=== PATIENT | female | born 1970 | race Caucasian/White ===

== ENCOUNTER 2018-10-30 08:44 | Outpatient (REF) | payer BC, SELFPAY ==
[2018-10-30 14:07] LABS: FREE T4 0.97 ng/dL (0.76-1.46)
== END 2018-10-30 09:04 ==
LOC: NCHCN 08:44
PROVIDERS: PCP Nurse Practitioner; Visit Provider Nurse Practitioner
DX: E03.9 Hypothyroidism, unspecified (principal)
CPT/HCPCS: 84439; 84443

== ENCOUNTER 2018-11-02 08:21 | Outpatient (CLI) | payer BC, SELFPAY ==
[2018-11-02 13:36] LABS: C-Reactive Protein 1.75 mg/dL (0.0-0.3)
[2018-11-02 14:46] LABS: ESR 19 MM/HR (0-20)
[2018-11-03 10:45] LABS: Rheumatoid Factor <8 IU/mL (<12.5)
== END 2018-11-02 08:41 ==
PROVIDERS: PCP Nurse Practitioner; Visit Provider Podiatrist
DX: M19.90 Unspecified osteoarthritis, unspecified site (principal)
CPT/HCPCS: 36415; 85652; 86140; 86431

== ENCOUNTER 2018-11-14 15:02 | Outpatient (CLI) | payer BC, SELFPAY ==
--- NOTE | 2018-11-14 13:30 | DI.US_ITS ---
SYMPTOMS/DIAGNOSIS: PAIN, SWELLING, LEFT LEG, ? DVT LEFT LOWER EXTREMITY ULTRASOUND: The deep veins of the left lower extremity show normal compression, augmentation and color flow. There is no evidence of a deep venous thrombus in the left lower extremity. The saphenofemoral junction is well maintained. No focal fluid collections are present. IMPRESSION: No evidence of a left lower extremity deep venous thrombus.
== END 2018-11-14 15:22 ==
PROVIDERS: PCP Nurse Practitioner; Visit Provider Podiatrist
DX: M79.605 Pain in left leg (principal); R22.42 Localized swelling, mass and lump, left lower limb
CPT/HCPCS: 93971

== ENCOUNTER 2018-11-20 15:02 | Outpatient (REF) | payer BC, SELFPAY ==
[2018-11-20 19:25] LABS: ALT 40 U/L (12-78); AST 21 U/L (15-37); Albumin 3.9 g/dL (3.4-5.0); Alkaline Phosphatase 78 U/L (46-116); Anion Gap 10.2 mmol/L (3-11); BUN 13 mg/dL (7-18); Bilirubin, Total 0.5 mg/dL (0.2-1.0); CO2 27.8 mmol/L (21.0-32.0); CREATININE 0.96 mg/dL (0.55-1.02); Calcium 9.1 mg/dL (8.5-10.1); Chloride 100 mmol/L (98-107); Glucose 75 mg/dL (70-100); Sodium 138 mmol/L (136-145); Total Protein 8.1 g/dL (6.4-8.2); Vitamin B12 1039 pg/mL (193-986)
== END 2018-11-20 15:22 ==
LOC: NCHCN 15:02
PROVIDERS: PCP Nurse Practitioner; Visit Provider Nurse Practitioner
DX: R60.9 Edema, unspecified (principal); E53.8 Deficiency of other specified B group vitamins
CPT/HCPCS: 80053; 82306; 82607

== ENCOUNTER 2018-12-07 09:23 | Outpatient (REF) | payer BC, SELFPAY ==
[2018-12-07 13:03] LABS: TSH (W/Ref FT4) 23.75 uIU/mL (0.358-3.74)
[2018-12-07 13:25] LABS: FREE T4 0.94 ng/dL (0.76-1.46)
== END 2018-12-07 09:43 ==
LOC: NCHCN 09:23
PROVIDERS: PCP Nurse Practitioner; Visit Provider Nurse Practitioner
DX: E03.9 Hypothyroidism, unspecified (principal)
CPT/HCPCS: 84439; 84443

== ENCOUNTER 2019-01-23 09:26 | Outpatient (CLI) | payer BC, SELFPAY ==
[2019-01-23 11:03] LABS: TSH (W/Ref FT4) 1.98 uIU/mL (0.358-3.74)
[2019-01-24 11:28] LABS: Lyme Ab w Rflx to Lyme Confirm Negative
[2019-01-24 13:58] LABS: ANA Interpretation Positive (NEGAT); ANA Titer Pattern SEE COMMENTS
[2019-01-25 00:33] LABS: Anaplasma phagocytophilum Negative (Negative); B. miyamotoi PCR Negative (Negative); Babesia divergens/MO-1 Negative (Negative); Babesia duncani Negative (Negative); Babesia microti Negative (Negative); Ehrlichia chaffeensis Negative (Negative); Ehrlichia ewingii/canis Negative (Negative); Ehrlichia muris eauclairensis Negative (Negative)
== END 2019-01-23 09:46 ==
PROVIDERS: PCP Nurse Practitioner; Visit Provider Nurse Practitioner
DX: E03.9 Hypothyroidism, unspecified (principal); E66.9 Obesity, unspecified; M25.50 Pain in unspecified joint
CPT/HCPCS: 36415; 87798; 84443; 86038; 86618

== ENCOUNTER 2020-10-02 02:38 | Outpatient (CLI) | payer BC, SELFPAY ==
[2020-10-03 02:30] LABS: COVID-19 RT-PCR UVMMC Result Positive (Negative)
== END 2020-10-02 02:39 | disposition home or self-care (01) ==
PROVIDERS: PCP Nurse Practitioner; Visit Provider Nurse Practitioner
DX: Z20.822 Contact with and (suspected) exposure to COVID-19 (principal)
CPT/HCPCS: U0003

== ENCOUNTER 2020-11-19 03:20 | Outpatient (CLI) | payer BC, SELFPAY ==
[2020-11-19 12:10] LABS: HGB 12.9 g/dL (11.2-15.7); MCH 29.7 pg (27.0-33.0); MCHC 33.1 % (32.0-36.0); MCV 89.9 fL (80-95); MPV 11.6 fL (8.0-11.0); Platelet Count 189 10^3/uL (130-400); RBC 4.34 10^6/uL (3.93-5.22); RDW 12.7 % (11.7-14.6); RDW-SD 41.6 fL; WBC 4.75 10^3/uL (4.4-10.8)
[2020-11-19 13:49] LABS: ALT 125 U/L (14-59); AST 68 U/L (15-37); Albumin 3.9 g/dL (3.4-5.0); Alkaline Phosphatase 67 U/L (46-116); Anion Gap 11.1 mmol/L (3-11); BUN 13 mg/dL (7-18); Bilirubin, Total 0.6 mg/dL (0.2-1.0); CO2 24.9 mmol/L (21.0-32.0); CREATININE 0.9 mg/dL (0.55-1.02); Calcium 9.1 mg/dL (8.5-10.1); Calculated LDL 147 mg/dL (<100); Chloride 103 mmol/L (98-107); Cholesterol 213 mg/dL (<200); Glucose 89 mg/dL (74-106); HDL Cholesterol 53 mg/dL (40-60); Potassium 4.2 mmol/L (3.5-5.1); Sodium 139 mmol/L (136-145); TSH (W/Ref FT4) 1.43 uIU/mL (0.36-3.74); Total Protein 7.6 g/dL (6.4-8.2); Triglyceride 67 mg/dL (<150); Vitamin B12 270 pg/mL (193-986)
[2020-11-20 14:41] LABS: ANA Interpretation Positive (Negative); ANA Titer Pattern 1:320 Homogeneous
== END 2020-11-19 03:21 | disposition home or self-care (01) ==
LOC: LBO 03:20
PROVIDERS: PCP Nurse Practitioner; Visit Provider Nurse Practitioner
DX: I10 Essential (primary) hypertension (principal); E03.9 Hypothyroidism, unspecified; E53.8 Deficiency of other specified B group vitamins; R76.8 Other specified abnormal immunological findings in serum; E66.9 Obesity, unspecified; Z13.220 Encounter for screening for lipoid disorders
CPT/HCPCS: 36415; 80053; 80061; 85027; 82607; 84443; 86038

== ENCOUNTER 2020-11-24 02:31 | Outpatient (CLI) | payer BC, SELFPAY ==
--- NOTE | 2020-11-24 07:00 | DI.MAMMO_ITS ---
Exam(s) MAMMO SCREENING EXAM: MAMMO SCREENING CLINICAL HISTORY: screening,Z12.39 TECHNIQUE: Bilateral full field digital CC and MLO mammographic images were obtained with 3D tomosyn thesis and utilizing computer aided detection (CAD). COMPARISON: Available for comparison. FINDINGS: Masses/Architectural Distortion: None seen. Microcalcifications: No suspicious pleomorphic-type are seen. Skin Thickening/Nipple Retraction: None. IMPRESSION: 1. No significant interval change with no specific features of malignancy noted. 2. Unless there is more urgent need, screening mammography is recommended, as per [place] [employer] guidelines. BI-RADS Category 1 - Negative Breast Density - Category B - Scattered areas of fibroglandular density Breast density category C or D implies that the patient has dense breast tissue. Dense breast tissue is very common and is not abnormal but dense breast tissue can make it harder to find cancer on a ma mmogram. Also, dense breast tissue may increase their breast cancer risk. This information about the result of the mammogram report was provided to the patient to raise their awareness. Use this report when you speak with the patient about their risks for breast cancer, which includes their family hist ory. At that time, you may recommend for more screening tests (Ultrasound or MRI) as they might be us eful based on their risk. A negative radiographic report should not delay biopsy if a dominant or clinically suspicious mass is present. Up to ten percent of cancers are not identified on mammography. A negative report may reinforce clinical impression. Adenosis and dense breasts may obscure an underlying neoplasm. False positive reports average 6 to 10%. Patient will receive a letter notifying them of these results.
== END 2020-11-24 02:51 ==
PROVIDERS: PCP Nurse Practitioner; Visit Provider Nurse Practitioner
DX: Z12.31 Encounter for screening mammogram for malignant neoplasm of breast (principal)
CPT/HCPCS: 77063; 77067

== ENCOUNTER 2021-01-28 03:13 | Outpatient (CLI) | payer BC, SELFPAY ==
[2021-01-28 10:55] LABS: ALT 71 U/L (14-59); AST 36 U/L (15-37); Albumin 3.7 g/dL (3.4-5.0); Alkaline Phosphatase 58 U/L (46-116); Bilirubin, Direct 0.1 mg/dL (0.0-0.2); Bilirubin, Total 0.4 mg/dL (0.2-1.0); Total Protein 7.2 g/dL (6.4-8.2)
[2021-01-29 10:25] LABS: Hepatitis C Ab w Rflx HCV PCR Negative (Negative)
== END 2021-01-28 03:14 | disposition home or self-care (01) ==
LOC: LBO 03:13
PROVIDERS: PCP Nurse Practitioner; Visit Provider Nurse Practitioner
DX: R79.89 Other specified abnormal findings of blood chemistry (principal); R94.5 Abnormal results of liver function studies
CPT/HCPCS: 36415; 80076; 86803

== ENCOUNTER 2021-08-28 01:07 | Outpatient (CLI) | payer BC, SELFPAY ==
[2021-08-28 13:00] LABS: Source Nasal/Nares
[2021-08-28 17:42] LABS: COVID-19 PCR Negative (Negative)
== END 2021-08-28 01:08 | disposition home or self-care (01) ==
LOC: LBO 01:07
PROVIDERS: PCP Nurse Practitioner; Visit Provider Surgery
DX: Z20.822 Contact with and (suspected) exposure to COVID-19 (principal)
CPT/HCPCS: 87635

== ENCOUNTER 2021-08-31 09:44 | Day surgery (SDC) | payer BC, SELFPAY ==
--- NOTE | 2021-08-31 06:38 | W.COLOREPORT ---
Colonoscopy Report Date of procedure: 08/31/21 Pre-op diagnosis general: Colon Cancer Screening Post-op diagnosis procedure note: other (polyps and internal hemorrhoid skin tag) Procedure: Colonoscopy with polypectomy Surgeon: Rachel Houston Anesthesia Type: General:No Airway Estimated blood loss (mL): 3 Pathology: other (sigmoid colon, rectal polyp) Complications: None Disposition: same day Indications: The patient is here for Colonoscopy pre-op.? She has no family history of colon cancer. She has not had any bowel habit changes. -Discussed colonoscopy bowel prep as well as the procedure. Discussed possible complications of the procedure to include bleeding, pain, perforation, missed small lesion/polyp, sore throat, aspiration and adverse reaction to the medications. Questions were answered to patient?s satisfaction. No guarantees were implied or given.? Prep: Miralax/Dulcolax Procedure Start Time: 11:54 Procedure End Time: 12:12 Retraction Time: 7 minutes Findings: 3 small polyps Internal hemorrhoidal skin tags Procedure Description: After informed consent was obtained the patient was taken to the procedure room and placed in a left decubitous position. Monitors were applied and a time out was done. The patients name, date of , procedure, allergies to medications and metal in their body was reviewed. The patient was then sedated. Once sedated and comfortable a rectal exam was done. External exam was normal. Internal exam revealed a normal sphincter tone and no palpable masses. The scope was then introduced and retro-flexed. Iinternal hemorrhoid al skin tags were noted on retroflexion. No polyps or masses were identified on retro-flexion. The scope was then advanced to the cecum without difficulty. The ileocecal vlave and appendiceal orifice were identified. The prep was adequate. The scope was then slowly retracted over 7 minutes back into the rectum. Polyps were removed with cold forceps in the sigmoid colon and rectum. There was no diverticulosis noted. The scope was removed and the patient was woken up and taken back to Same day surgery in stable condition. The patient tolerated the procedure well and there were no immediate complications. Follow up: Follow up will depend on the pathology results.
--- NOTE | 2021-08-31 06:39 | W.PM.DSUDISC ---
Discharge Plan Disposition Patient Disposition: HOME Condition: Good Discharge Details Reason For Visit: Colonoscopy Attending Provider: Rachel Houston Primary Care Provider: Roberta Palumbo Home Meds and New Rx's Prescriptions: Continued multivitamin Tablet 1 tab PO DAILY 0RF calcium carbonate [Calcium 500] 500 mg calcium (1,250 mg) tablet,chewable 500 mg PO DAILY 0RF levothyroxine 200 mcg capsule 200 mcg PO DAILY Qty: 90 3RF cyanocobalamin (vitamin B-12) 1,000 mcg capsule 1,000 mcg PO .2x/week 0RF Discontinued polyethylene glycol 3350 17 gram/dose powder 238 g PO ONCE Qty: 238 0RF Rx Instructions: take per colonoscopy instructions bisacodyl [Dulcolax (bisacodyl)] 5 mg tablet,delayed release (DR/EC) 5 mg PO ONCE Qty: 4 0RF Rx Instructions: take per colonoscopy instructions Discharge Instructions Instructions: Colorectal Polyps (DC) Additional Instructions: Findings: 3 small polyps Follow up: will depend on final pathology Please call if you develop: fevers >101.5 Nausea or Vomiting Abdominal pain that is not transient Rectal bleeding that is more then a tbsp A hard abdomen and inability to pass gas DAY SURGERY UNIT POST ENDOSCOPY INSTRUCTIONS Instructions for everyone who is given Anesthesia: For your safety, please do the following for the next 24 Hours: a. Do not drive or operate dangerous equipment b. Do not drink alcohol beverages or use any recreational drugs for the first 24 hours or while taking pain medications. The medications in your body may have a reaction that can be dangerous. c. Do not make any important decisions or sign any important papers 1. Generally there are no restrictions on your activity after a day or so has gone by, but you may feel a bit fatigued for a few days. 2. After you arrive home you may have a light meal and return to a normal diet as you can tolerate it without feeling sick to your stomach. 3. After surgery, you may feel pain or discomfort. This should be only transient, but if it persists please contact your doctor. 4. If there are any questions regarding the findings of your procedure, please feel free to contact your doctor. 6. If you are unable to contact your doctor with a problem, contact the hospital at [phone]. 7. Continue all your regular medications unless directed otherwise. I understand the above instructions and have no questions. Signature of Patient or Responsible Adult Escort Date/Time Name of Responsible Adult Escort Signature of Nurse Date/Time Activity:: Activity as Tolerated Diet:: As Tolerated Discharge Orders Discharge Orders: Discharge Order (Routine); Ordered 08/31/21 Ordered By: Rachel Houston
[2021-08-31 09:50] VITALS: BP 144/82; PULSE 82; RESP 16; TEMP 36.2; O2SAT 100
[2021-08-31] MEDS: Lactated Ringers 1,000 ML 80 ML IV (10:20)
--- NOTE | 2021-08-31 11:12 | W.ANESPRE ---
General Info Date of Service Date Performed: 08/31/21 Height: 5 ft 8 in Weight: 116.1 kg Body Mass Index (BMI): 38.9 Surgical Procedure: Operation Date: 08/31/21 11:35 Proposed Procedure Side Surgeon p Shila Houston MD Meds Allergies and Home Medications Allergies Allergy/AdvReac Type Severity Reaction Status Date / Time No Known Allergies Allergy Verified 08/31/21 09:46 Home Medication Medication Instructions Recorded cyanocobalamin (vitamin B-12) 1,000 mcg PO .2x/week cap 11/18/20 1,000 mcg capsule levothyroxine 200 mcg capsule 200 mcg PO DAILY #90 cap 11/18/20 bisacodyl 5 mg tablet,delayed 5 mg PO ONCE #4 tab 08/21/21 release (Dulcolax (bisacodyl)) calcium carbonate 500 mg calcium 500 mg PO DAILY 08/21/21 (1,250 mg) chewable tablet (Calcium 500) multivitamin 1 tab PO DAILY 08/21/21 polyethylene glycol 3350 17 238 g PO ONCE #238 g 08/21/21 gram/dose oral powder Current Visit Medications: Current Medications Generic Name Dose Route Start Last Admin Trade Name Freq PRN Reason Stop Dose Admin Hyoscyamine Sulfate 0.125 mg 08/31/21 06:39 Hyoscyamine 0.125 Mg Sl/Oral/Chew SL DIRECTED PRN Ringer's Solution 1,000 mls @ 80 mls/hr 08/31/21 06:00 08/31/21 10:20 IV 09/27/21 23:59 80 mls/hr INFUSION SUSAN Administration IV Miscellaneous Supplies 1 each 08/31/21 06:00 Iv Access IV 09/27/21 23:59 DIRECTED SUSAN Ondansetron HCl 4 mg 08/31/21 06:39 Ondansetron 4 Mg/2 Ml Vial IVP Q4H PRN PRN Nausea / Vomiting Sodium Chloride 0 ml 08/31/21 06:00 Normal Saline Flush 10 Ml Syr IV 09/27/21 23:59 PRN PRN Sodium Chloride 0 ml 08/31/21 06:00 Normal Saline 10 Ml Vial IJ 09/27/21 23:59 DIRECTED PRN Sterile Water 0 ml 08/31/21 06:00 Water,Injection,Sterile 10 Ml Vial IJ 09/27/21 23:59 DIRECTED PRN PFSH Active Problems Active Problems: Problem Status Onset Code Elevated LFTs R79.89 B12 deficiency E53.8 Elevated antinuclear antibody (JASMYN) level R76.8 Colon cancer screening Z12.11 Screening for cholesterol level Z13.220 Routine medical exam Z00.00 SARS-CoV-2 positive U07.1 Arthralgia M25.50 Encounter to establish care Z76.89 Obesity E66.9 Hypothyroidism E03.9 Medical History Medical History Edema of left lower extremity Surgical History Surgical History H/O hemorrhoidectomy (05/11/12) Tobacco Smoking/Tobacco Use Status: Former Tobacco Use Passive smoking exposure: No Alcohol Alcohol Intake: current Alcohol intake frequency: 3 or more drinks per day Alcohol type: beer and wine Substance Use Substance use: Occasionally Substance use type: marijuana Vital Signs and Lab Results Vital Signs Most Recent Vital Signs in EMR: Most Recent Vital Signs Temp Pulse Resp BP Pulse Ox 36.2 C L 82 16 144/82 H 100 08/31/21 09:50 08/31/21 09:50 08/31/21 09:50 08/31/21 09:50 08/31/21 09:50 Point of Care Results Point of Care Results: POC- Test(urine) Negative 08/31/21 10:12 Lab Results Blood Type / Crossmatch: No Data to Display Complete Blood Count: No Data to Display Complete Metabolic Panel: No Data to Display Liver Function Panel: No Data to Display Coagulation Panel: No Data to Display Cardiac Panel: No Data to Display Arterial Blood Gas: No Data to Display Venous Blood Gas: No Data to Display Pancreas Panel: No Data to Display Thyroid Panel: No Data to Display Infectious Disease: Coronavirus (COVID-19)(PCR) Negative (Negative) 08/28/21 10:49 08/28/21 Coronavirus 2019 Source Nasal/Nares 08/28/21 10:49 08/28/21 Blood Cultures: No Data to Display Toxicology Panel: No Data to Display Panel: No Data to Display Anesthesia Assessment and Plan Anesthesia History Personal History: No History of Anesthesia Complications Family History: No Family History of Anesthesia Complications Exercise Tolerance Exercise Tolerance: Metabolic Equivalents>4 Cardiac & Pulmonary Exam Cardiac Exam: Normal S1/S2 Heart Sounds Pulmonary Exam: Clear Bilateral Breath Sounds Implantable Cardiac Device Does patient have a Pacemaker or an ICD?: No Airway Exam Known Difficult Airway: No Mallampati Class: 2 Mouth Opening: Normal (> 3cm) Thyromental Distance: Greater than 3 cm Neck Range of Motion: Full ROM Neck Circumference: Thick Teeth Condition: Normal Dentition ASA Classification ASA Score: ASA 2 Emergency Case?: No NPO Status NPO Status: NPO Clears >2 hours, Solids >8 hours Status Status: Negative HCG Anesthesia Plan Resuscitation Status: Full Code Anesthesia Technique: General Anesthesia Airway Planned: Natural Airway Monitors Used: Standard Monitors Preoperative Comments:: 51 yo female for screening colo. Sig PMHx: hypothyroid (on replacement), former smoker, 3 drinks EtOH/day, occ cannabis.
[2021-08-31 11:17] VITALS: BMI 38.9
--- NOTE | 2021-08-31 12:05 | BOWEL_PTH ---
PATIENT: Fela Messer LOC: [place] U#:[id number] AGE/SX: 51/F ROOM: RE08/31/[address]: Rachel Houston MD : 1970 BED: DIS: 08/31/2021 SPEC #: [id number] RECD: 08/31/21 12:47 STATUS: RAMSES REQ #: [id number] JOSE: 08/31/21 12:[address]: Rachel Houston DEPT: Surgical Specimen RECD BY: Era Ramirez ENTERED: 08/31/21 12:49 SP TYPE: Bowel OTHR DR: Roberta Palumbo APRN Tissues: 1 - BIOPSY BOWEL 2 - BIOPSY BOWEL Procedures: GROSS AND MICRO LEVEL 4 Comments: [id number]
[2021-08-31 12:20] VITALS: BP 114/72; PULSE 74; RESP 16; TEMP 36.1; O2SAT 98
[2021-08-31 12:45] VITALS: BP 117/82; PULSE 72; RESP 16; TEMP 36.1; O2SAT 100
--- NOTE | 2021-08-31 15:15 | W.ANESPOSTOP ---
Postoperative Evaluation Date, Time and Location Date Performed: 08/31/21 Time Performed: 12:45 Patient Location: Day Surgery Unit Vital Signs Most Recent Imported Vital Signs: Most Recent Vital Signs Temp Pulse Resp BP Pulse Ox 36.1 C L 72 16 117/82 100 08/31/21 12:45 08/31/21 12:45 08/31/21 12:45 08/31/21 12:45 08/31/21 12:45 Pain Score Most Recent Pain Score: Most Recent Pain Score Pain Level 0 08/31/21 12:45 Assessment Mental Status: Awake (Alert & Oriented to Patient Baseline) Airway and Respiratory Function: Patent airway with normal (patient baseline) respiratory exam Cardiovascular Function: Hemodynamically Stable Hydration Status: Adequately Hydrated Nausea & Vomiting: No Nausea or Vomiting Pain: Pt. Denies Any Pain Peripheral Nerve Block: Patient did not receive a nerve block Postoperative Comments:: Seen earlier in DSU
== END 2021-08-31 13:01 | disposition home or self-care (01) ==
LOC: SUR 09:45
PROVIDERS: PCP Nurse Practitioner; Visit Provider Surgery
PROC: 0DJD8ZZ Inspection of Lower Intestinal Tract, Via Natural or Artificial Opening Endoscopic (ICD-10-PCS; CPT 45378; principal; 2021-08-31 11:30)
DX: Z12.11 Encounter for screening for malignant neoplasm of colon (principal); D12.3 Benign neoplasm of transverse colon; D12.5 Benign neoplasm of sigmoid colon; K64.8 Other hemorrhoids; K62.1 Rectal polyp
CPT/HCPCS: 45380; 81025; 88305

== ENCOUNTER 2021-09-04 03:59 | Outpatient (CLI) | payer BC, SELFPAY ==
[2021-09-04 10:27] LABS: TSH (W/Ref FT4) 1.03 uIU/mL (0.36-3.74)
== END 2021-09-04 04:00 | disposition home or self-care (01) ==
LOC: LBO 03:59
PROVIDERS: PCP Nurse Practitioner; Visit Provider Nurse Practitioner
DX: E03.9 Hypothyroidism, unspecified (principal)
CPT/HCPCS: 36415; 84443

== ENCOUNTER 2022-07-14 04:55 | Outpatient (CLI) | payer BC, SELFPAY ==
[2022-07-14 09:32] LABS: Hemoglobin A1C 5.5 % (<5.7)
[2022-07-14 09:58] LABS: ALT 46 U/L (14-59); AST 31 U/L (15-37); Albumin 3.6 g/dL (3.4-5.0); Alkaline Phosphatase 69 U/L (46-116); Anion Gap 8.6 mmol/L (3-11); BUN 14 mg/dL (7-18); Bilirubin, Total 0.4 mg/dL (0.2-1.0); CO2 27.4 mmol/L (21.0-32.0); Calcium 8.7 mg/dL (8.5-10.1); Calculated LDL 140 mg/dL (<100); Chloride 102 mmol/L (98-107); Cholesterol 219 mg/dL (<200); Estimated GFR 68.21 (mL/min/1.73m2); Glucose 115 mg/dL (74-106); HDL Cholesterol 59 mg/dL (40-60); Potassium 4.7 mmol/L (3.5-5.1); Sodium 138 mmol/L (136-145); Total Protein 7.6 g/dL (6.4-8.2); Triglyceride 102 mg/dL (<150)
[2022-07-14 10:21] LABS: FREE T4 1.21 ng/dL (0.76-1.46)
== END 2022-07-14 04:56 | disposition home or self-care (01) ==
PROVIDERS: PCP Nurse Practitioner; Referring Provider Nurse Practitioner; Visit Provider Nurse Practitioner
DX: E03.9 Hypothyroidism, unspecified (principal); I10 Essential (primary) hypertension; E66.8 Other obesity; R73.09 Other abnormal glucose
CPT/HCPCS: 36415; 80053; 80061; 83036; 84439; 84443

== ENCOUNTER 2023-01-20 15:08 | Outpatient (REF) | payer BC, SELFPAY ==
--- NOTE | 2023-01-20 09:45 | PAPFT_PTH ---
PATIENT: Fela Messer LOC: [facility] U#:[id number] AGE/SX: 52/F ROOM: RE01/20/[address]: Roberta Palumbo APRN : 1970 BED: DIS: 01/20/2023 SPEC #: [id number] RECD: 01/20/23 17:18 STATUS: RAMSES RECatia #: [id number] JOSE: 01/20/23 09:[address]: Roberta Palumbo DEPT: [facility] Cytology RECD BY: Era Ramirez Tissues: 1 - CX/ENDOCX FOR PAP SMEARS Procedures: PAP THIN PREP/UVM Screening HPV DNA PROBE Comments: [id number]
== END 2023-01-20 15:09 | disposition home or self-care (01) ==
LOC: LBN 15:08
PROVIDERS: PCP Nurse Practitioner; Visit Provider Nurse Practitioner
DX: Z00.00 Encounter for general adult medical examination without abnormal findings (principal); Z12.4 Encounter for screening for malignant neoplasm of cervix; R87.610 Atypical squamous cells of undetermined significance on cytologic smear of cervix (ASC-US); Z11.51 Encounter for screening for human papillomavirus (HPV)
CPT/HCPCS: 88142; 87624

== ENCOUNTER 2023-01-31 03:31 | Outpatient (CLI) | payer BC, SELFPAY ==
--- NOTE | 2023-01-31 07:30 | DI.MAMMO_ITS ---
Exam(s) MAMMO SCREENING EXAM: MAMMO SCREENING CLINICAL HISTORY: screening,Z12.39 TECHNIQUE: Bilateral full field digital CC and MLO mammographic images were obtained with 3D tomosyn thesis and utilizing computer aided detection (CAD). COMPARISON: Available for comparison. FINDINGS: Masses/Architectural Distortion: None seen. Microcalcifications: No suspicious pleomorphic-type are seen. Skin Thickening/Nipple Retraction: None. IMPRESSION: 1. No significant interval change with no specific features of malignancy noted. 2. Unless there is more urgent need, screening mammography is recommended, as per [place] [employer] guidelines. BI-RADS Category 1 - Negative Breast Density - Category C - Heterogeneously dense Breast density category C or D implies that the patient has dense breast tissue. Dense breast tissue is very common and is not abnormal but dense breast tissue can make it harder to find cancer on a ma mmogram. Also, dense breast tissue may increase their breast cancer risk. This information about the result of the mammogram report was provided to the patient to raise their awareness. Use this report when you speak with the patient about their risks for breast cancer, which includes their family hist ory. At that time, you may recommend for more screening tests (Ultrasound or MRI) as they might be us eful based on their risk. A negative radiographic report should not delay biopsy if a dominant or clinically suspicious mass is present. Up to ten percent of cancers are not identified on mammography. A negative report may reinforce clinical impression. Adenosis and dense breasts may obscure an underlying neoplasm. False positive reports average 6 to 10%. Patient will receive a letter notifying them of these results.
== END 2023-01-31 03:51 ==
LOC: DI 03:31
PROVIDERS: PCP Nurse Practitioner; Visit Provider Nurse Practitioner
DX: Z12.31 Encounter for screening mammogram for malignant neoplasm of breast (principal)
CPT/HCPCS: 77063; 77067

== ENCOUNTER 2024-05-01 14:23 | Outpatient (REF) | payer BC, SELFPAY ==
--- NOTE | 2024-05-01 14:00 | PAPFT_PTH ---
PATIENT: Fela Messer LOC: [facility] U#:[id number] AGE/SX: 53/F ROOM: RE05/01/[address]: Roberta Palumbo APRN : 1970 BED: DIS: 05/01/2024 SPEC #: [id number] RECD: 05/01/24 17:48 STATUS: RAMSES REQ #: [id number] JOSE: 05/01/24 14:[address]: Roberta Palumbo DEPT: [facility] Cytology RECD BY: Era Ramirez Tissues: 1 - CX/ENDOCX FOR PAP SMEARS Procedures: PAP THIN PREP/UVM Screening HPV DNA PROBE Comments: [id number] (HPV 16 & 18/45)
== END 2024-05-01 14:24 ==
LOC: LBN 14:23
PROVIDERS: PCP Nurse Practitioner; Visit Provider Nurse Practitioner
DX: E03.9 Hypothyroidism, unspecified (principal); E66.9 Obesity, unspecified; E78.5 Hyperlipidemia, unspecified; R73.01 Impaired fasting glucose; Z23 Encounter for immunization; Z01.419 Encounter for gynecological examination (general) (routine) without abnormal findings
CPT/HCPCS: 88142; 87624

== ENCOUNTER 2024-05-18 00:23 | Outpatient (CLI) | payer BC, SELFPAY ==
--- NOTE | 2024-05-18 07:15 | DI.MAMMO_ITS ---
Exam(s) MAMMO SCREENING EXAM: MAMMO SCREENING CLINICAL HISTORY: screening,z12.39 TECHNIQUE: Bilateral full field digital CC and MLO mammographic images were obtained with 3D tomosyn thesis and utilizing computer aided detection (CAD). COMPARISON: Available for comparison. FINDINGS: Masses/Architectural Distortion: None seen. Microcalcifications: No suspicious pleomorphic-type are seen. Skin Thickening/Nipple Retraction: None. IMPRESSION: 1. No significant interval change with no specific features of malignancy noted. 2. Unless there is more urgent need, screening mammography is recommended, as per [place] [employer] guidelines. BI-RADS Category 1 - Negative Breast Density - Category B - Scattered areas of fibroglandular density Breast density category C or D implies that the patient has dense breast tissue. Dense breast tissue is very common and is not abnormal but dense breast tissue can make it harder to find cancer on a ma mmogram. Also, dense breast tissue may increase their breast cancer risk. This information about the result of the mammogram report was provided to the patient to raise their awareness. Use this report when you speak with the patient about their risks for breast cancer, which includes their family hist ory. At that time, you may recommend for more screening tests (Ultrasound or MRI) as they might be us eful based on their risk. A negative radiographic report should not delay biopsy if a dominant or clinically suspicious mass is present. Up to ten percent of cancers are not identified on mammography. A negative report may reinforce clinical impression. Adenosis and dense breasts may obscure an underlying neoplasm. False positive reports average 6 to 10%. Patient will receive a letter notifying them of these results.
== END 2024-05-18 00:43 ==
LOC: DI 00:24
PROVIDERS: PCP Nurse Practitioner; Visit Provider Nurse Practitioner
DX: Z12.31 Encounter for screening mammogram for malignant neoplasm of breast (principal); R92.323 Mammographic fibroglandular density, bilateral breasts
CPT/HCPCS: 77063; 77067

== ENCOUNTER 2024-08-10 00:52 | Outpatient (CLI) | payer BC, SELFPAY ==
[2024-08-10 09:21] LABS: Abs Immature Grans 0.01 10^3/uL (0.0-0.06); Absolute Basophil Count 0.05 10^3/uL (0.0-0.2); Absolute Eosinophil Count 0.28 10^3/uL (0.0-0.7); Absolute Lymphocyte Count 1.23 10^3/uL (1.2-3.4); Absolute Monocyte Count 0.61 10^3/uL (0.1-0.8); Absolute Neutrophil Count 2.68 10^3/uL (1.2-6.7); Eosinophils % 5.8 %; HCT 41.3 % (36.0-46.0); HGB 13.6 g/dL (11.2-15.7); Immature Grans % 0.2 %; Lymphocytes % 25.3 %; MCH 29.7 pg (27.0-33.0); MCHC 32.9 % (32.0-36.0); MCV 90 fL (80-95); Monocytes % 12.6 %; Neutrophils % 55.1 %; Platelet Count 175 10^3/uL (130-400); RBC 4.58 10^6/uL (3.93-5.22); RDW 12.1 % (11.7-14.6); RDW-SD 39.3 fL; WBC 4.86 10^3/uL (4.4-10.8)
[2024-08-10 09:29] LABS: Hemoglobin A1C 5.6 % (<5.7)
[2024-08-10 09:48] LABS: ALT 111 U/L (14-59); AST 67 U/L (15-37); Albumin 3.7 g/dL (3.4-5.0); Alkaline Phosphatase 68 U/L (46-116); Anion Gap 8.2 mmol/L (3-11); BUN 14 mg/dL (7-18); Bilirubin, Total 0.45 mg/dL (0.2-1.0); CO2 27.8 mmol/L (21.0-32.0); Calcium 9.5 mg/dL (8.5-10.1); Calculated LDL 131 mg/dL (<100); Chloride 107 mmol/L (98-107); Cholesterol 201 mg/dL (<200); Estimated GFR 67.36 (mL/min/1.73m2); Glucose 114 mg/dL (74-106); HDL Cholesterol 53 mg/dL (40-60); Potassium 4.1 mmol/L (3.5-5.1); Sodium 143 mmol/L (136-145); Total Protein 7.7 g/dL (6.4-8.2); Triglyceride 87 mg/dL (<150)
[2024-08-10 10:10] LABS: TSH (W/Ref FT4) 0.03 uIU/mL (0.36-3.74)
[2024-08-10 10:26] LABS: FREE T4 1.58 ng/dL (0.76-1.46)
== END 2024-08-10 00:53 | disposition home or self-care (01) ==
PROVIDERS: PCP Nurse Practitioner; Visit Provider Nurse Practitioner
DX: Z00.00 Encounter for general adult medical examination without abnormal findings (principal)
CPT/HCPCS: 36415; 80053; 80061; 83036; 84439; 84443; 85025